=== PATIENT | male | born 1960 | race Caucasian/White ===

== ENCOUNTER 2020-12-11 07:35 | Day surgery (SDC) | payer OTHER ==
[~2020-12-11 07:35] MED LIST: Lactated Ringers 1,000 ML IV SCH; Sodium Chloride 0.9% 10 ML Syringe FLUSH PRN
[2020-12-11] MEDS ORDERED: Propofol 200 MG/20 ML SDV ONE ×2 (08:11→09:26)
[2020-12-11] MEDS ORDERED: fentaNYL 100 MCG/2 ML SDV ONE (08:11)
--- NOTE | 2020-12-11 13:18 | OR ---
DATE OF SURGERY: 12/11/2020. REFERRING PROVIDER: Zain Villegas MD PRE-OPERATIVE DIAGNOSIS: History of colon polyps. Last colonoscopy was 07/2017. The patient had 5 polyps removed including 2 that were greater than or equal to 1 cm in size. There is no known family history of colon cancer. POST-OPERATIVE DIAGNOSES: Four small polyps removed, all using cold forceps. 1. 3 mm polyp at 80 cm. 2. 2 mm polyp at 50 cm. 3. 3 mm polyp at 45 cm. 4. 3 mm polyp at 18 cm. PROCEDURE: Colonoscopy with polypectomy x4 using cold forceps. SURGEON: Wayne Villalba M.D. ANESTHESIA: Monitored anesthesia care. BOWEL PREP: Good. Jasvir is a 60-year-old male who was brought to the endoscopy suite after discussing risks and benefits of the procedure. Informed consent was obtained for conscious sedation and colonoscopy with or without biopsy and/or polypectomy. We also discussed possibility of missed lesions. Pre-procedure exam was unremarkable. IV, oxygen, and monitors were placed. The patient was placed in the left lateral decubitus position. Sedation was administered and a digital rectal exam was performed and unremarkable. Colonoscope was passed into the rectum and slowly advanced all the way to the cecum. Cecum was viewed and photographed. The colonoscope was slowly withdrawn and the mucosa was closed observed in a direct circumferential manner. The ascending colon revealed 3 mm polyp at 80 cm, removed using cold forceps. The transverse colon was unremarkable. The descending colon revealed 2 mm polyp at 50 cm and 3 mm polyp at 45 cm, removed using cold forceps. The sigmoid colon was remarkable for 3 mm polyp at 18 cm, removed using cold forceps. Retroflexion was performed and rectal mucosa was unremarkable. Scope was removed. The patient tolerated the procedure well. The patient was monitored until that baseline status. Discharge instructions were reviewed and the patient was discharged in good condition. COMPLICATIONS: None. TOTAL TIME: 21 minutes. ESTIMATED BLOOD LOSS: About 1 mL. RECOMMENDATIONS/FOLLOW-UP: We will await results of path report to determine ideal followup interval. I would like to kindly thank Dr. Villegas for this referral. DMB: 12/11/2020 10:05:10 MODL: 12/11/2020 11:32:54 /[id number]
== END 2020-12-11 10:50 | disposition home or self-care (01) ==
LOC: VM.SDS 07:35
PROVIDERS: ATTEND Family Medicine
DX: Z12.11 Encounter for screening for malignant neoplasm of colon (principal); D12.2 Benign neoplasm of ascending colon; D12.4 Benign neoplasm of descending colon; D12.5 Benign neoplasm of sigmoid colon; I10 Essential (primary) hypertension; E66.9 Obesity, unspecified; E78.5 Hyperlipidemia, unspecified; E78.2 Mixed hyperlipidemia; J45.31 Mild persistent asthma with (acute) exacerbation; Z79.899 Other long term (current) drug therapy; Z01.812 Encounter for preprocedural laboratory examination; Z20.822 Contact with and (suspected) exposure to COVID-19; Z68.33 Body mass index [BMI] 33.0-33.9, adult
CPT/HCPCS: 00811; J2704; J3010; J7120; U0002